=== PATIENT | female | born 1945 | race Caucasian/White ===

== ENCOUNTER 2018-11-30 11:22 | Emergency (ER) | payer MEDICARE, OTHER ==
[~2018-11-30] VITALS: Ht 167.6 cm; Wt 59.0 kg
[2018-11-30 11:29] VITALS: BP 140/75
[2018-11-30] MEDS ORDERED: ibuprofen tablet 400 MG TABLET PO ONE (13:40)
== END 2018-11-30 14:33 | disposition home or self-care (01) ==
LOC: ER 11:24
DX: J11.1 Influenza due to unidentified influenza virus with other respiratory manifestations (principal)
CPT/HCPCS: 71046; 99283

== ENCOUNTER 2020-02-28 16:07 | Emergency (ER) | payer MEDICARE, OTHER ==
[~2020-02-28] VITALS: Ht 170.2 cm; Wt 77.3 kg
--- NOTE | 2020-02-28 16:17 | NUR ---
HAILEY Porras at bedside, nose clamp applied on arrival to ER
[2020-02-28] MEDS ORDERED: tranexamic acid 100mg/ml inj. TP ONE (16:20)
[2020-02-28] MEDS ORDERED: oxymetazoline 15 ML nasal spray NS ONE (16:20)
--- NOTE | 2020-02-28 16:36 | NUR ---
HAILEY has placed cotton balls with TXA in BL nostrils after Afrin spray, nose clamp reapplied
--- NOTE | 2020-02-28 17:10 | NUR ---
Bleeding has significantly decreased. PA has extracted large blood clot from back of throat, pt tolerated well. GCS 15.
--- NOTE | 2020-02-28 17:41 | NUR ---
Nasal clamp off, no bleeding at this time. WCTM. Call light at bedside.
[2020-02-28 18:36] VITALS: BP 149/103
== END 2020-02-28 18:31 | disposition home or self-care (01) ==
LOC: ER 16:08
DX: R04.0 Epistaxis (principal)
CPT/HCPCS: 99283; 99284

== ENCOUNTER 2022-03-17 09:47 | Emergency (ER) | payer MEDICARE, OTHER ==
[~2022-03-17] VITALS: Ht 167.6 cm; Wt 66.8 kg
--- NOTE | 2022-03-17 10:29 | NUR ---
pt woke up this morning and has been feeling dizzy. When pt leaned over to get shoes she feel into the wall and hit her left arm. Pt came in because she still feels dizzy
[2022-03-17 10:43] LABS: BASOPHILS % (AUTO) 0.7 % (0-1); EOSINOPHILS # (AUTO) 0.1 X10'3 (0-0.9); EOSINOPHILS % (AUTO) 1.3 % (0-6); HEMATOCRIT 40.6 % (35.0-45.0); HEMOGLOBIN 13.6 g/dl (12.0-16.0); LYMPHOCYTES % (AUTO) 20.5 % (21-51); MEAN CORPUSCULAR HEMOGLOBIN 33.1 PG (27.0-31.0); MEAN CORPUSCULAR HGB CONC 33.5 g/dL (33.0-36.5); MEAN PLATELET VOLUME 8.3 FL (7.4-10.4); MONOCYTES # (AUTO) 0.3 X10'3 (0-0.9); MONOCYTES % (AUTO) 6.6 % (2-12); NEUTROPHILS # (AUTO) 3.4 X10'3 (1.8-7.7); NEUTROPHILS % (AUTO) 70.9 % (42-75); PLATELET COUNT 207 X10'3 (140-440); RED CELL DISTRIBUTION WIDTH 13.1 % (11.5-14.5); WHITE BLOOD COUNT 4.8 X10'3 (4.5-11.0)
[2022-03-17 11:04] LABS: ALANINE AMINOTRANSFERASE 30 U/L (12-78); ALBUMIN 4.3 G/DL (3.4-5.0); ALBUMIN/GLOBULIN RATIO 1.3 (1.1-1.5); ALKALINE PHOSPHATASE 55 IU/L (46-116); ANION GAP 7 (8-16); ASPARTATE AMINO TRANSFERASE 27 U/L (10-37); BILIRUBIN,TOTAL 0.5 MG/DL (0.1-1.0); BLOOD UREA NITROGEN 19 MG/DL (7-18); BUN/CREATININE RATIO 25.3 (6.6-38.0); CALCIUM 9.1 MG/DL (8.5-10.1); CHLORIDE 101 MMOL/L (99-107); CREATININE 0.75 MG/DL (0.40-0.90); GLUCOSE 122 MG/DL (70-104); POTASSIUM 3.9 MMOL/L (3.5-5.1); SODIUM 137 MMOL/L (135-145); TOTAL CARBON DIOXIDE 28.7 MMOL/L (24-32); TOTAL PROTEIN 7.6 G/DL (6.4-8.2); eGFR 76 ML/MIN
[2022-03-17] MEDS ORDERED: iohexol 350MG/ML 100ml bottle IV ONE (11:11)
[2022-03-17] MEDS ORDERED: MECL-226 PO (12:22)
[2022-03-17 12:36] VITALS: BP 175/98
== END 2022-03-17 12:37 | disposition home or self-care (01) ==
LOC: ER 09:50
DX: R42 Dizziness and giddiness (principal); R11.0 Nausea; R51.9 Headache, unspecified; Z79.899 Other long term (current) drug therapy
CPT/HCPCS: 36415; 70450; 70496; 70498; 71045; 80053; 83880; 84484; 85025; 93005; 99285; Q9967